=== PATIENT | male | born 1965 | race Hispanic/Latino ===

== ENCOUNTER → 2016-08-21 | Outpatient (CLI) | payer OTHER ==
[~2016-08-21] MED LIST: AMOX-358 PO; CATHETER FLUSH 10 ML SYR IV PRN; HYDR-3812 PO; IOHEXOL 350 MG/ML 100 ML (OMNIPAQUE 350) VIAL IV ONE; METR500T PO; NS 100 ML (IVPB) BAG IV ONE
--- NOTE | 2016-08-21 10:45 | Diagnostic Imaging Report ---
PROCEDURE: CT abdomen and pelvis with contrast. TECHNIQUE: Multiple contiguous axial images were obtained through the abdomen and pelvis after administration of intravenous contrast. INDICATION: Followup pancreatitis. TECHNIQUE: 100 mL of Omnipaque 350 was administered intravenously. COMPARISON: 05/27/2016. FINDINGS: The lung bases demonstrate minimal atelectasis. The liver demonstrates diffuse fatty infiltration. The spleen is moderately enlarged measuring the 16.7 cm in AP dimension, increased in size compared to the previous exam. The adrenals appear unremarkable. Cholecystectomy clips are seen. The previously seen area of necrosis in the pancreas and peripancreatic tissue is now associated with internal air bubbles and air-fluid levels concerning for a superimposed infection. The fluid collection follows the curvature of the anatomy of the pancreas with approximate dimensions of 10.1 x 4.8 x 8.7 cm. There are surrounding mild inflammatory changes seen. The anterior aspect of the fluid collection is abutting the posterior margin of the stomach. Most of the pancreas parenchyma is necrotic with only a minimal amount of remaining intact enhancing parenchyma in the body and slightly more portions of intact parenchyma in the uncinate process and pancreatic head seen. The kidneys have symmetric enhancement and contrast excretion. There is no hydronephrosis. The abdominal aorta is normal in caliber. No para-aortic significantly enlarged lymph nodes are seen. The prostate is at the upper limits of normal in size. There is a minimal amount of free fluid seen in the pelvis. The osseous structures appear grossly unremarkable. IMPRESSION: Development of air-fluid levels within the area of previously seen walled off necrosis along the pancreatic bed concerning for development of an abscess. Another less likely potential explanation for development of air within the collection is from a fistula with the GI tract. Correlate clinically. These findings were discussed with Dr. Hurley by Dr. Donahue at the time of dictation. Dictated by: Dictated on workstation # [id number]
== END ==
LOC: RAD 07:56
PROVIDERS: ATTEND Surgery
DX: K85.90 Acute pancreatitis without necrosis or infection, unspecified (principal)
CPT/HCPCS: 74177